=== PATIENT | male | born 1950 | race Caucasian/White ===

== ENCOUNTER 2019-01-13 06:36 | Emergency (ER) | payer OTHER ==
[~2019-01-13] VITALS: Ht 180.3 cm; Wt 100.0 kg
[2019-01-13 08:04] VITALS: BP 154/86
== END 2019-01-13 08:04 | disposition home or self-care (01) ==
LOC: ER 06:36
DX: R33.9 Retention of urine, unspecified (principal); N40.0 Benign prostatic hyperplasia without lower urinary tract symptoms; I10 Essential (primary) hypertension; I27.20 Pulmonary hypertension, unspecified; Z90.89 Acquired absence of other organs
CPT/HCPCS: 99283